=== PATIENT | male | born 2000 | race Caucasian/White ===

== ENCOUNTER 2024-11-07 20:30 | Emergency (ER) | payer BC, MEDICAID ==
[~2024-11-07] VITALS: Ht 172.7 cm; Wt 65.0 kg
[2024-11-07 21:31] VITALS: PULSE 88; RESP 18; O2SAT 98
[2024-11-07 21:41] VITALS: PULSE 89; RESP 18; O2SAT 99
[2024-11-07] MEDS: ACETAMINOPHEN 325MG TABLET PO ONE (21:41)
[2024-11-07] MEDS: ALBUTEROL (0.083%) 2.5MG/3ML NEB HHN ONE ×2 (21:41→22:17)
[2024-11-07] MEDS: PREDNISONE 20MG TABLET PO ONE (21:41)
[2024-11-07] MEDS: KETOROLAC 30MG/ML VIAL IM ONE (22:18)
[2024-11-07 22:21] VITALS: PULSE 87; RESP 18; O2SAT 98
[2024-11-07] MEDS ORDERED: ALBU18HF2 IH (22:39)
[2024-11-07] MEDS ORDERED: P50 MT (22:39)
[2024-11-07 22:58] VITALS: BP 106/62; PULSE 106; RESP 18; TEMP 36.8; O2SAT 96
== END 2024-11-07 22:58 | disposition home or self-care (01) ==
LOC: ER 20:30
DX: B34.9 Viral infection, unspecified (principal)
CPT/HCPCS: 71045; 94640; 96372; 99285; J7512; J1885; Z7610 ×3; 94070; 94664; 98960